=== PATIENT | female | born 2005 | race Caucasian/White ===

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

== ENCOUNTER 2024-09-10 13:11 | Emergency (ER) | payer OTHER, SELFPAY ==
--- NOTE | ~2024-09-10 | CT_ITS ---
Non-contrast Head CT History: Status post fall Technique: Axial non-contrast imaging of the brain was performed. Dose reduction technique was used on this scan by utilizing automated exposure control and iterative reconstruction technique. The dose -length product (DLP) was 756.67 mGy-cm. Findings: There is no evidence of intracranial hemorrhage, mass lesion, or acute infarct. Brain par enchyma appears normal. The ventricles and subarachnoid spaces are normal in size. The calvarium ap pears normal. The visualized paranasal sinuses and mastoid air cells are clear. Impression: No acute abnormality seen. Reviewed, dictated and finalized at location . [employer] Impression: No acute abnormality seen.
--- NOTE | ~2024-09-10 | CT_ITS ---
EXAMINATION: CT facial & cervical spine wo DATE: 09/10/2024 13:41 INDICATION: Head injury. TECHNIQUE: Computed tomography (CT) of the maxillofacial region and cervical spine was performed with out intravenous contrast. Automated exposure control and iterative reconstruction technique were empl oyed. The dose-length product was 180.03 mGy-cm. COMPARISON: None FINDINGS: MAXILLOFACIAL CT: There is leftward deviation of anterior nasal septum and rightward deviation of posterior nasal septu m. No fracture. There is minimal mucosal thickening in right maxillary sinus. CERVICAL SPINE CT: There is mild kyphosis of cervical spine. Vertebral body heights and intervertebral disc heights are normal. At C7-T1, there is mild bilateral facet joint osteoarthritis. No neural foraminal stenosis or central canal stenosis. IMPRESSION: 1. No fracture. Reviewed, dictated and finalized at location A. DIGGER IMPRESSION: 1. No fracture.
[2024-09-10 13:16] VITALS: BP 137/103; PULSE 83; RESP 18; TEMP 36.5; O2SAT 100
--- NOTE | 2024-09-10 13:21 | ED_ITS ---
HPI - Fall General Chief Complaint: Fall <Eleni Dolan PA-C - Last Filed: 09/10/24 13:22> Stated Complaint: fell out of wheelchair <Eleni Dolan PA-C - Last Filed: 09/10/24 13:22> Time Seen by Provider: 09/10/24 18:00 <Eleni Dolan PA-C - Last Filed: 09/10/24 13:22> Focused HPI: 19-year-old female history of cerebral palsy who is wheelchair-bound presents emergency department with mother and father at bedside after a fall that occurred at school prior to arrival. Patient's mother provides history and states she was going through a doorway with a raised step which caused her wheelchair to fall forward. Patient did hit her head and hit her nose on the wheelchair. She has been complaining of pain to her nose. Patient's mother father states that as far as I can tell she at her normal mental status. She has no other complaints other than pain to her nose. No epistaxis. GENERAL: Well-appearing, well-nourished, and in no acute distress. HEAD: Normocephalic, atraumatic. Tenderness to the nasal bridge with no obvious deformity CHEST: Clear to auscultation. ?No respiratory distress. HEART: Regular rate and rhythm.? NEURO: ?Alert and oriented x3. Patient screened in triage and initial orders placed.? ?Additional care and disposition to be based upon?diagnostic testing and treatment. <Eleni Dolan PA-C - Last Filed: 09/10/24 13:22> History of Present Illness HPI Narrative: Concur with the above history obtained. Patient did not fall out of her wheelchair but rather the wheelchair tipped over during the event. Patient wears glasses they suspect that the redness across the bridge of her nose is secondary to that impression. No other complaints by patient. Mother notes she also has an impression inside her upper lip. Patient denies any broken/loose teeth. Patient was found with the wheelchair tipped so as to land in the right side of her body. They note that she was wearing her leg brace(s) at that time which may cushioned some of the impact. Mother notes a small right frontal forehead hematoma. <Ginger Cobb MD - Last Filed: 09/11/24 09:02> Related Data Allergies/Adverse Reactions: Allergies Allergy/AdvReac Type Severity Reaction Status Date / Time No Known Allergies Allergy Unverified 12/05/16 16:28 <Eleni Dolan PA-C - Last Filed: 09/10/24 13:22> PMFSH Past Medical History Medical History: Medical History Cerebral palsy Wears glasses <Eleni Dolan PA-C - Last Filed: 09/10/24 13:22> Social History Social History: Social History Living arrangements: with family Occupation/Education: student <Eleni Dolan PA-C - Last Filed: 09/10/24 13:22> Exam Narrative: GENERAL: Well-appearing, well-nourished, and in no acute distress. HEAD: Small right forehead hematoma. EYES: Non injected, non icteric ENT: Nares clear, no rhinorrhea or epistaxis. Bilateral nares clear and without a septal hematoma. No broken or loose dentition. Patient does have a slight superficial abrasion consistent with the impression of her teeth in her right upper lip however not actively bleeding, not a laceration in requiring repair, not through and through. NECK: Supple. CHEST: Speaking in full sentences. No respiratory distress. No ecchymosis along R lateral chest which is also not tender to palpation or with bony crepitus or subcutaneous emphysema. Lungs clear to auscultation bilaterally. HEART: Regular rate and rhythm. . ABDOMEN: Soft, nondistended. EXTREMITIES: No lower extremity edema. Multiple well healed scars along bilateral legs and R hip. No active ecchymosis. Extremities x4 palpated and without bony deformity. Can assist patient with passive range of motion of R arm/shoulder which is without restriction and does not appear to cause pain. PELVIS: STable to compression. SKIN: Warm, dry, no rash. NEURO: Alert and oriented. Contractures. PSYCH: Congruent mood and affect. <Ginger Cobb MD - Last Filed: 09/11/24 09:02> Course Vital Signs Vital signs: Vital Signs Temperature 97.7 F 09/10/24 13:16 Pulse Rate 83 09/10/24 13:16 Respiratory Rate 18 09/10/24 13:16 Blood Pressure 137/103 H 09/10/24 13:16 Pulse Oximetry 100 09/10/24 13:16 Oxygen Delivery Room Air 09/10/24 13:16 Temperature 97.9 F 09/10/24 17:21 Pulse Rate 82 09/10/24 19:10 Respiratory Rate 16 09/10/24 19:10 Blood Pressure 138/84 09/10/24 19:10 Pulse Oximetry 99 09/10/24 19:10 Oxygen Delivery Room Air 09/10/24 19:10 <Eleni Dolan PA-C - Last Filed: 09/10/24 13:22> Vital Signs Temperature 97.7 F 09/10/24 13:16 Pulse Rate 83 09/10/24 13:16 Respiratory Rate 18 09/10/24 13:16 Blood Pressure 137/103 H 09/10/24 13:16 Pulse Oximetry 100 09/10/24 13:16 Oxygen Delivery Room Air 09/10/24 13:16 Temperature 97.9 F 09/10/24 17:21 Pulse Rate 82 09/10/24 19:10 Respiratory Rate 16 09/10/24 19:10 Blood Pressure 138/84 09/10/24 19:10 Pulse Oximetry 99 09/10/24 19:10 Oxygen Delivery Room Air 09/10/24 19:10 <Ginger Cobb MD - Last Filed: 09/11/24 09:02> MDM - Fall MDM Narrative Medical decision making narrative: Patient is an exceedingly pleasant 19 year old with cerebal palsy who presents after she fell while in her wheelchair when it accidentally lost contact with the ramp during a fire drill. She remained in the chair at the time and landed on her right side. Patient with no complaints. Mild erythema over b ridge of nose where she wears glasses. In the emergency department she is afebrile with vital signs notable for hypertension particularly elevated diastolic blood pressure. CT imaging negative. Physical exam performed with patient in room and patient is assessed head to toe. There do not appear to be any obvious injuries. Discussed with mother that patient should be offered Motrin/ibuprofen and acetaminophen/Tylenol over the next several days given she may be sore and achy. We reviewed the mild abrasion in her upper lip and mother verifies understanding that this should heal very quickly and, if desired, patient should be offered popsicles and ice cream but otherwise there is no laceration. We discussed that the hematoma on the forehead should also improve in the next several days. We discussed that ice could intermittently be applied but only if the patient tolerates this and it does not cause more discomfort than it is worth. Patient ready to go and mother feels comfortable with this plan. Discharged home in stable condition. <Ginger Cobb MD - Last Filed: 09/11/24 09:02> Differential Diagnosis Differential diagnosis: Likely other (nasal bone fracture, maxillary/facial bone fracture; contusions) <Ginger Cobb MD - Last Filed: 09/11/24 09:02> Imaging Data Radiologist's impression: Impressions Head CT 09/10/24 13:44 Impression: No acute abnormality seen. Head/Cervical Spine/Facial Bones CT 09/10/24 13:48 IMPRESSION: 1. No fracture. <Ginger Cobb MD - Last Filed: 09/11/24 09:02> Discharge Plan Discharge Clinical Impression: Fall involving wheelchair, Contusion of nose, Traumatic hematoma of forehead <Eleni Dolan PA-C - Last Filed: 09/10/24 13:22> Patient Disposition: Home, Self-Care <Eleni Dolan PA-C - Last Filed: 09/10/24 13:22> Condition: Stable <Eleni Dolan PA-C - Last Filed: 09/10/24 13:22> Instructions: Antibiotic Form, Contusion in Adults (ED), Hematoma (ED) <Eleni Dolan PA-C - Last Filed: 09/10/24 13:22> Additional Instructions: As we discussed, no evidence of broken bones or bleeding. For the general soreness and achiness to follow including the hematoma ( goose-egg ), it is safe to take acetaminophen/Tylenol and Motrin/ibuprofen. for for either stagger these medications or there even safe to take together if desired But offer them over the next several days. follow-up with primary care physician. Return to the emergency department with any new or worsening symptoms. <Eleni Dolan PA-C - Last Filed: 09/10/24 13:22> Prescriptions: New acetaminophen 500 mg capsule 500 mg PO Q6H PRN (Reason: pain) Qty: 20 0RF ibuprofen 400 mg tablet 400 mg PO TID PRN (Reason: pain) Qty: 20 0RF <Eleni Dolan PA-C - Last Filed: 09/10/24 13:22> Follow-up/Referrals: Fatuma Waterman MD [Primary Care Provider] - <Eleni Dolan PA-C - Last Filed: 09/10/24 13:22> Stand Alone Forms: Work/School Release IP <Eleni Dolan PA-C - Last Filed: 09/10/24 13:22> Time of Disposition: 18:52 <Eleni Dolan PA-C - Last Filed: 09/10/24 13:22> 18:52 <Ginger Cobb MD - Last Filed: 09/11/24 09:02>
[2024-09-10 17:21] VITALS: BP 136/98; PULSE 97; RESP 16; TEMP 36.6; O2SAT 98
[2024-09-10] MEDS: IBUPROFEN SUSPENSION 200 MG/10 ML UDC 550 MG PO (19:05)
[2024-09-10 19:10] VITALS: BP 138/84; PULSE 82; RESP 16; O2SAT 99
== END 2024-09-10 19:12 | disposition home or self-care (01) ==
PROVIDERS: Emergency Provider Student in an Organized Health Care Education/Training Program; PCP Pediatrics
DX: S00.33XA Contusion of nose, initial encounter (principal); S00.83XA Contusion of other part of head, initial encounter; W05.0XXA Fall from non-moving wheelchair, initial encounter; Z99.3 Dependence on wheelchair; G80.9 Cerebral palsy, unspecified
CPT/HCPCS: 70450; 70486; 72125; 99284; A9270